=== PATIENT | male | born 1960 | race African-American/Black ===

== ENCOUNTER 2018-06-21 00:45 | Inpatient (IN) ==
[2018-06-21] MEDS ORDERED: ASPIRIN 325 MG TABLET PO STA (01:24)
[2018-06-21] MEDS ORDERED: methylPREDNISolone SOD SUC 125 MG/2 ML VIAL IV STA (01:24)
[2018-06-21] MEDS ORDERED: ONDANSETRON 4 MG/2 ML VIAL IV STA (01:24)
[2018-06-21] MEDS ORDERED: FUROSEMIDE 100 MG/10 ML VIAL IV STA (01:24)
[2018-06-21] MEDS ORDERED: NITROGLYCERIN 2% OINT 1 INCH/GM PACK TOP STA (01:24)
[2018-06-21] MEDS ORDERED: MORPHINE 4 MG/1 ML VIAL IV STA (01:24)
[2018-06-21] MEDS ORDERED: ALBUTEROL 2.5 MG/3 ML NEB RESP TX SCH (01:30)
[2018-06-21 02:31] LABS: Basophils # 0.1 10*3/uL (0.0-0.2); Basophils % 0.4 % (0.0-0.8); Hematocrit 41.6 VOL% (42.0-52.0); Hemoglobin 14.6 GM/DL (14.0-18.0); Immature Granulocytes % 0.8 %; Mean Corpuscular HGB Conc 35.1 GM/DL (32-36); Mean Corpuscular Hemoglobin 34 PG (27-34); Mean Corpuscular Volume 96.5 FL (87-102); Mean Platelet Volume 11.7 FL (9.6-12.0); Monocytes # 0.6 10*3/uL (0.11-0.8); Neutrophils # 10.5 10*3/uL (1.4-7.4); Neutrophils % 85.8 % (38.7-73.9); Platelet Count 126 T/CUMM (130-400); Red Blood Count 4.31 MC/CUMM (3.8-5.5); Red Cell Distribution Width 14.7 % (9.3-17.3); White Blood Count 12.2 T/CUMM (4-12)
[2018-06-21 02:39] LABS: INR 0.9; PT Patient Result 9.5 SECS
[2018-06-21 02:48] LABS: Alanine Aminotransferase 35 U/L (16-61); Alkaline Phosphatase 89 U/L (45-117); Amylase 112 U/L (25-115); Aspartate Amino Transferase 89 U/L (0-37); Blood Urea Nitrogen 23 MG/DL (7-18); Calcium 8.2 MG/DL (8.5-10.1); Glucose 102 MG/DL (74-106); Osmolality,Calculated 265.7 MOS/KG (273-304); Potassium 2.8 MMOL/L (3.5-5.1); Sodium 131 MMOL/L (136-145); Total Protein 7.5 G/DL (6.4-8.3)
[2018-06-21] MEDS ORDERED: POTASSIUM CHLORIDE RIDER 10 MEQ in PREMIX 1 EACH IV PRN (04:37)
[2018-06-21] MEDS ORDERED: MAGNESIUM SULF RIDER 4 GM in PREMIX 1 EACH IV PRN (04:37)
[2018-06-21] MEDS ORDERED: POTASSIUM CHLORIDE 20 MEQ TABLET PO STA (04:40)
[2018-06-21 05:23] LABS: Apearance,Urine Slightly Hazy (Clear); Bilirubin,Urine Negative (Negative); Blood, Urine Large mg/dL (Negative); Glucose,Urine (UA) Negative (Negative); Granular Casts,Urine 4 /LPF (0-1); Hyaline Casts,Urine 4 /LPF (0-3); Ketones,Urine Negative (Negative); Mucus,Urine Occasional /LPF (Occasional); Nitrite,Urine Negative (Negative); Protein,Urine >=500 MG/DL; RBC,Urine 2 /HPF (0-4); Squamous Epithelial Cell,Urine Occasional /HPF (0-10); Urine Color Yellow (Yellow); Urine Specific Gravity 1.012 (1.001-1.035); Urine Urobilinogen < 2.0 EU/DL (0.2-1.0); WBC,Urine 1 /HPF (0-6)
[2018-06-21] MEDS ORDERED: ACETAMINOPHEN 325 MG TABLET PO PRN (05:41)
[2018-06-21] MEDS ORDERED: ONDANSETRON 4 MG/2 ML VIAL IV PRN (05:41)
[2018-06-21 05:45] LABS: Barbiturates Screen,Urine Negative (Negative); Benzodiazepines Screen,Urine Negative (Negative); Cannabinoid Screen,Urine Negative (Negative); Opiate Screen,Urine Positive (Negative); Phencyclidine Screen,Urine Negative (Negative)
[2018-06-21] MEDS ORDERED: ALBUTEROL 1.25 MG/3 ML NEB RESP TX PRN (05:45)
[2018-06-21] MEDS ORDERED: LORazepam 2 MG/1 ML VIAL IV PRN ×2 (05:49)
[2018-06-21] MEDS ORDERED: cefTRIAXone 1,000 MG in SYRINGE 1 EACH IV SCH ×2 (06:00→09:30)
[2018-06-21] MEDS ORDERED: NICOTINE 21 MG/24 HR PATCH TRANSDERM PRN (06:21)
[2018-06-21 07:40] LABS: Risk Ratio 1.98; Thyroid Stimulating Hormone 2.57 uIU/ml (0.358-3.74); VLDL CHOLESTEROL 28.8 MG/DL
[2018-06-21] MEDS ORDERED: FUROSEMIDE 20 MG/2 ML VIAL IV SCH (08:00)
[2018-06-21] MEDS: ENOXAPARIN 40 MG/0.4 ML SYRINGE SUBCUT SCH (08:35)
[2018-06-21] MEDS: AZITHROMYCIN INJ 500 MG in SODIUM CHLORIDE 0.9% 250 ML IV SCH (08:36)
[2018-06-21] MEDS: ALBUTEROL/IPRATROPIUM 3 ML NEB RESP TX SCH ×3 (08:44→20:34)
[2018-06-21] MEDS ORDERED: POTASSIUM CHLORIDE 20 MEQ TABLET PO ONE (09:28)
[2018-06-21] MEDS ORDERED: cefTRIAXone 1,000 MG in SYRINGE 1 EACH IV ONE (10:00)
[2018-06-21] MEDS: LACTOBACILLUS ACIDOPHILUS/BULGARICUS CAPLET PO SCH (11:13)
[2018-06-21] MEDS: MULTIVITAMIN (BEROCCA) TABLET PO SCH (11:13)
[2018-06-21] MEDS: buPROPion SR 100 MG TABLET PO SCH (11:13)
[2018-06-21] MEDS: amLODIPine 5 MG TABLET PO SCH (11:14)
[2018-06-21] MEDS: CARVEDILOL 12.5 MG TABLET PO SCH ×2 (11:14→21:00)
[2018-06-21] MEDS: NICOTINE 21 MG/24 HR PATCH TRANSDERM SCH (11:14)
[2018-06-21] MEDS: THIAMINE 100 MG TABLET PO SCH ×2 (11:14→21:00)
[2018-06-21] MEDS: chlordiazePOXIDE 25 MG CAPSULE PO SCH ×3 (13:04→21:00)
[2018-06-21] MEDS: MAGNESIUM SULF RIDER 2 GM in PREMIX 1 EACH IV PRN ×2 (13:42→16:19)
[2018-06-21] MEDS: methylPREDNISolone SOD SUC 40 MG/1 ML VIAL IV SCH (16:18)
[2018-06-21] MEDS: FOLIC ACID 1 MG TABLET PO SCH (21:00)
[2018-06-22] MEDS: ALBUTEROL/IPRATROPIUM 3 ML NEB RESP TX SCH ×4 (01:17→19:56)
[2018-06-22] MEDS: methylPREDNISolone SOD SUC 40 MG/1 ML VIAL IV SCH ×2 (03:39→17:32)
[2018-06-22 05:15] LABS: Basophils % 0.1 % (0.0-0.8); Hematocrit 37.4 VOL% (42.0-52.0); Immature Granulocytes Absolute 0.09 #; Lymphocytes # 0.8 10*3/uL (1.4-4.0); Lymphocytes % 8.7 % (21.2-54.2); Mean Corpuscular HGB Conc 34.8 GM/DL (32-36); Mean Corpuscular Hemoglobin 34 PG (27-34); Mean Corpuscular Volume 97.4 FL (87-102); Mean Platelet Volume 11.9 FL (9.6-12.0); Monocytes # 0.5 10*3/uL (0.11-0.8); Neutrophils % 85.2 % (38.7-73.9); Platelet Count 133 T/CUMM (130-400); Red Blood Count 3.84 MC/CUMM (3.8-5.5); Red Cell Distribution Width 14.7 % (9.3-17.3); White Blood Count 9.3 T/CUMM (4-12)
[2018-06-22 05:30] LABS: Calcium 8.6 MG/DL (8.5-10.1); Osmolality,Calculated 279.4 MOS/KG (273-304); Potassium 3.4 MMOL/L (3.5-5.1)
[2018-06-22] MEDS: AZITHROMYCIN INJ 500 MG in SODIUM CHLORIDE 0.9% 250 ML IV SCH (05:43)
[2018-06-22] MEDS: ENOXAPARIN 40 MG/0.4 ML SYRINGE SUBCUT SCH (05:50)
[2018-06-22 06:06] LABS: Anisocytosis Slight; Band Neutrophils 2 % (0-10); Lymphocytes 8 % (20-55); Microcytosis Slight; Segmented Neutrophils 88 % (50-85); Total Cells Counted 100
[2018-06-22 06:08] LABS: Platelet Estimate Adequate
[2018-06-22] MEDS: chlordiazePOXIDE 25 MG CAPSULE PO SCH ×5 (07:36→20:48)
[2018-06-22] MEDS: NICOTINE 21 MG/24 HR PATCH TRANSDERM SCH ×2 (07:36→08:10)
[2018-06-22] MEDS: POTASSIUM CHLORIDE 20 MEQ TABLET PO SCH ×2 (07:37→08:09)
[2018-06-22] MEDS: THIAMINE 100 MG TABLET PO SCH ×3 (07:37→20:48)
[2018-06-22] MEDS: CARVEDILOL 12.5 MG TABLET PO SCH ×3 (07:38→20:48)
[2018-06-22] MEDS: MULTIVITAMIN (BEROCCA) TABLET PO SCH ×2 (07:38→08:09)
[2018-06-22] MEDS: buPROPion SR 100 MG TABLET PO SCH ×2 (07:38→08:10)
[2018-06-22] MEDS: LACTOBACILLUS ACIDOPHILUS/BULGARICUS CAPLET PO SCH ×2 (07:40→08:09)
[2018-06-22] MEDS: amLODIPine 5 MG TABLET PO SCH (08:11)
[2018-06-22] MEDS: cefTRIAXone 2,000 MG in SYRINGE 1 EACH IV SCH (09:42)
[2018-06-22] MEDS: VANCOMYCIN 50 MG/ML 60 ML/BOTTLE PO SCH ×2 (17:33→23:45)
[2018-06-22] MEDS: FOLIC ACID 1 MG TABLET PO SCH (20:48)
[2018-06-23] MEDS: ALBUTEROL/IPRATROPIUM 3 ML NEB RESP TX SCH ×4 (01:54→19:10)
[2018-06-23 05:13] LABS: Basophils % 0.2 % (0.0-0.8); Hematocrit 38.8 VOL% (42.0-52.0); Hemoglobin 13.3 GM/DL (14.0-18.0); Immature Granulocytes % 0.8 %; Immature Granulocytes Absolute 0.08 #; Lymphocytes # 1.5 10*3/uL (1.4-4.0); Lymphocytes % 14.4 % (21.2-54.2); Mean Corpuscular HGB Conc 34.3 GM/DL (32-36); Mean Corpuscular Hemoglobin 34 PG (27-34); Mean Corpuscular Volume 99.5 FL (87-102); Mean Platelet Volume 12.1 FL (9.6-12.0); Monocytes # 0.6 10*3/uL (0.11-0.8); Monocytes % 5.5 % (1.7-12.7); Neutrophils # 8.1 10*3/uL (1.4-7.4); Neutrophils % 79.1 % (38.7-73.9); Platelet Count 138 T/CUMM (130-400); Red Cell Distribution Width 14.9 % (9.3-17.3); White Blood Count 10.2 T/CUMM (4-12)
[2018-06-23 05:28] LABS: Calcium 8.9 MG/DL (8.5-10.1); Osmolality,Calculated 280.8 MOS/KG (273-304); Potassium 3.6 MMOL/L (3.5-5.1)
[2018-06-23 05:40] LABS: Anisocytosis 1+; Atypical Lymphocytes Few; Band Neutrophils 3 % (0-10); Lymphocytes 9 % (20-55); Platelet Estimate Adequate; Segmented Neutrophils 84 % (50-85); Total Cells Counted 100
[2018-06-23] MEDS: ENOXAPARIN 40 MG/0.4 ML SYRINGE SUBCUT SCH (05:40)
[2018-06-23] MEDS: methylPREDNISolone SOD SUC 40 MG/1 ML VIAL IV SCH ×2 (05:41→15:59)
[2018-06-23] MEDS: AZITHROMYCIN INJ 500 MG in SODIUM CHLORIDE 0.9% 250 ML IV SCH (05:41)
[2018-06-23] MEDS: VANCOMYCIN 50 MG/ML 60 ML/BOTTLE PO SCH ×4 (06:39→23:16)
[2018-06-23] MEDS: amLODIPine 5 MG TABLET PO SCH ×2 (07:53→08:39)
[2018-06-23] MEDS: LACTOBACILLUS ACIDOPHILUS/BULGARICUS CAPLET PO SCH ×2 (07:53→08:39)
[2018-06-23] MEDS: MULTIVITAMIN (BEROCCA) TABLET PO SCH ×2 (07:53→08:39)
[2018-06-23] MEDS: POTASSIUM CHLORIDE 20 MEQ TABLET PO SCH ×2 (07:53→08:39)
[2018-06-23] MEDS: chlordiazePOXIDE 25 MG CAPSULE PO SCH ×5 (07:53→20:19)
[2018-06-23] MEDS: buPROPion SR 100 MG TABLET PO SCH ×2 (07:53→08:40)
[2018-06-23] MEDS: CHOLECALCIFEROL 1,000 UNIT TABLET PO SCH ×2 (07:54→08:39)
[2018-06-23] MEDS: THIAMINE 100 MG TABLET PO SCH ×3 (07:54→20:20)
[2018-06-23] MEDS: CARVEDILOL 12.5 MG TABLET PO SCH ×3 (07:54→20:24)
[2018-06-23] MEDS: NICOTINE 21 MG/24 HR PATCH TRANSDERM SCH ×2 (07:54→08:39)
[2018-06-23] MEDS: cefTRIAXone 2,000 MG in SYRINGE 1 EACH IV SCH (09:42)
[2018-06-23] MEDS ORDERED: ERGOCALCIFEROL 50,000 UNIT CAPSULE PO SCH (13:30)
[2018-06-23] MEDS: LISINOPRIL 10 MG TABLET PO SCH (15:59)
[2018-06-23] MEDS: FOLIC ACID 1 MG TABLET PO SCH (20:20)
[2018-06-24] MEDS: ALBUTEROL/IPRATROPIUM 3 ML NEB RESP TX SCH ×4 (00:13→19:29)
[2018-06-24] MEDS: AZITHROMYCIN INJ 500 MG in SODIUM CHLORIDE 0.9% 250 ML IV SCH (05:13)
[2018-06-24] MEDS: VANCOMYCIN 50 MG/ML 60 ML/BOTTLE PO SCH ×4 (05:13→23:54)
[2018-06-24] MEDS: methylPREDNISolone SOD SUC 40 MG/1 ML VIAL IV SCH (05:14)
[2018-06-24] MEDS: ENOXAPARIN 40 MG/0.4 ML SYRINGE SUBCUT SCH (05:14)
[2018-06-24] MEDS: buPROPion SR 100 MG TABLET PO SCH (09:14)
[2018-06-24] MEDS: MULTIVITAMIN (BEROCCA) TABLET PO SCH (09:14)
[2018-06-24] MEDS: NICOTINE 21 MG/24 HR PATCH TRANSDERM SCH (09:14)
[2018-06-24] MEDS: THIAMINE 100 MG TABLET PO SCH ×2 (09:14→21:22)
[2018-06-24] MEDS: LISINOPRIL 10 MG TABLET PO SCH (09:14)
[2018-06-24] MEDS: LACTOBACILLUS ACIDOPHILUS/BULGARICUS CAPLET PO SCH (09:14)
[2018-06-24] MEDS: CARVEDILOL 12.5 MG TABLET PO SCH ×2 (09:14→21:22)
[2018-06-24] MEDS: chlordiazePOXIDE 25 MG CAPSULE PO SCH ×4 (09:14→21:22)
[2018-06-24] MEDS: CHOLECALCIFEROL 1,000 UNIT TABLET PO SCH (09:14)
[2018-06-24] MEDS: cefTRIAXone 2,000 MG in SYRINGE 1 EACH IV SCH (09:18)
[2018-06-24 10:38] LABS: Basophils % 0.4 % (0.0-0.8); Hematocrit 37.2 VOL% (42.0-52.0); Hemoglobin 12.6 GM/DL (14.0-18.0); Immature Granulocytes % 0.5 %; Immature Granulocytes Absolute 0.04 #; Lymphocytes # 1.3 10*3/uL (1.4-4.0); Lymphocytes % 15.1 % (21.2-54.2); Mean Corpuscular HGB Conc 33.9 GM/DL (32-36); Mean Corpuscular Hemoglobin 34 PG (27-34); Mean Corpuscular Volume 100.5 FL (87-102); Mean Platelet Volume 11.3 FL (9.6-12.0); Monocytes # 0.5 10*3/uL (0.11-0.8); Monocytes % 6.1 % (1.7-12.7); Neutrophils # 6.6 10*3/uL (1.4-7.4); Neutrophils % 77.9 % (38.7-73.9); Platelet Count 173 T/CUMM (130-400); Red Cell Distribution Width 15.1 % (9.3-17.3); White Blood Count 8.5 T/CUMM (4-12)
[2018-06-24 10:51] LABS: Calcium 8.8 MG/DL (8.5-10.1); Osmolality,Calculated 286.5 MOS/KG (273-304); Potassium 3.8 MMOL/L (3.5-5.1)
[2018-06-24 11:10] LABS: Hypochromasia 1+; Lymphocytes 15 % (20-55); Microcytosis Slight; Platelet Estimate Adequate; Segmented Neutrophils 84 % (50-85); Total Cells Counted 100
[2018-06-24] MEDS: FOLIC ACID 1 MG TABLET PO SCH (21:22)
[2018-06-25] MEDS: ALBUTEROL/IPRATROPIUM 3 ML NEB RESP TX SCH ×4 (05:05→19:29)
[2018-06-25] MEDS: AZITHROMYCIN INJ 500 MG in SODIUM CHLORIDE 0.9% 250 ML IV SCH (05:17)
[2018-06-25] MEDS: ENOXAPARIN 40 MG/0.4 ML SYRINGE SUBCUT SCH (05:18)
[2018-06-25] MEDS: VANCOMYCIN 50 MG/ML 60 ML/BOTTLE PO SCH ×3 (05:18→17:18)
[2018-06-25] MEDS: LISINOPRIL 10 MG TABLET PO SCH (09:29)
[2018-06-25] MEDS: NICOTINE 21 MG/24 HR PATCH TRANSDERM SCH (09:29)
[2018-06-25] MEDS: chlordiazePOXIDE 25 MG CAPSULE PO SCH ×4 (09:30→20:54)
[2018-06-25] MEDS: CHOLECALCIFEROL 1,000 UNIT TABLET PO SCH (09:31)
[2018-06-25] MEDS: buPROPion SR 100 MG TABLET PO SCH (09:32)
[2018-06-25] MEDS: LACTOBACILLUS ACIDOPHILUS/BULGARICUS CAPLET PO SCH (09:32)
[2018-06-25] MEDS: THIAMINE 100 MG TABLET PO SCH ×2 (09:32→20:54)
[2018-06-25] MEDS: methylPREDNISolone SOD SUC 40 MG/1 ML VIAL IV SCH (09:32)
[2018-06-25] MEDS: MULTIVITAMIN (BEROCCA) TABLET PO SCH (09:32)
[2018-06-25] MEDS: CARVEDILOL 12.5 MG TABLET PO SCH ×2 (09:32→20:54)
[2018-06-25] MEDS: cefTRIAXone 2,000 MG in SYRINGE 1 EACH IV SCH (09:33)
[2018-06-25] MEDS: FOLIC ACID 1 MG TABLET PO SCH (20:54)
[2018-06-26] MEDS: VANCOMYCIN 50 MG/ML 60 ML/BOTTLE PO SCH ×4 (00:14→17:09)
[2018-06-26] MEDS: ALBUTEROL/IPRATROPIUM 3 ML NEB RESP TX SCH ×4 (00:44→19:17)
[2018-06-26] MEDS ORDERED: hydrALAZINE 20 MG/1 ML VIAL IV ONE (02:49)
[2018-06-26] MEDS: AZITHROMYCIN INJ 500 MG in SODIUM CHLORIDE 0.9% 250 ML IV SCH (05:42)
[2018-06-26] MEDS: ENOXAPARIN 40 MG/0.4 ML SYRINGE SUBCUT SCH (05:43)
[2018-06-26 08:00] LABS: Albumin (SPE) Rel % 45.7 %; Alpha 1 (SPE) 0.2 G/DL (0.1-0.4); Alpha 1 (SPE) Rel % 3.7 %; Alpha 2 (SPE) 1.1 G/DL (0.4-1.0); Alpha 2 (SPE) Rel % 16.6 %; Beta (SPE) 0.9 G/DL (0.5-1.1); Beta (SPE) Rel % 13.3 %; Gamma (SPE) 1.4 G/DL (0.7-1.7); Gamma (SPE) Rel % 20.7 %; Total Protein (Chem) 6.6 G/DL (6.4-8.3)
[2018-06-26] MEDS: NICOTINE 21 MG/24 HR PATCH TRANSDERM SCH (09:13)
[2018-06-26] MEDS: MULTIVITAMIN (BEROCCA) TABLET PO SCH (09:14)
[2018-06-26] MEDS: chlordiazePOXIDE 25 MG CAPSULE PO SCH ×4 (09:14→21:11)
[2018-06-26] MEDS: CARVEDILOL 12.5 MG TABLET PO SCH ×2 (09:14→21:11)
[2018-06-26] MEDS: CHOLECALCIFEROL 1,000 UNIT TABLET PO SCH (09:14)
[2018-06-26] MEDS: THIAMINE 100 MG TABLET PO SCH ×2 (09:14→21:11)
[2018-06-26] MEDS: LISINOPRIL 20 MG TABLET PO SCH ×2 (09:14→21:11)
[2018-06-26] MEDS: methylPREDNISolone SOD SUC 40 MG/1 ML VIAL IV SCH (09:14)
[2018-06-26] MEDS: LACTOBACILLUS ACIDOPHILUS/BULGARICUS CAPLET PO SCH (09:14)
[2018-06-26] MEDS: buPROPion SR 100 MG TABLET PO SCH (09:14)
[2018-06-26] MEDS: cefTRIAXone 2,000 MG in SYRINGE 1 EACH IV SCH (09:20)
[2018-06-26 10:06] LABS: Immuno Free Light Chain Kappa 3.39 MG/DL (0.33-1.94); Immuno Free Light Chain Lambda 3.24 MG/DL (0.57-2.63); Immuno Free Light Chain Ratio 1.05 MG/DL (0.26-1.65)
[2018-06-26 11:09] LABS: HIV Antigen/Antibody Result Nonreactive (Nonreactive)
[2018-06-26] MEDS: FOLIC ACID 1 MG TABLET PO SCH (21:11)
[2018-06-27] MEDS: ALBUTEROL/IPRATROPIUM 3 ML NEB RESP TX SCH ×2 (00:05→07:15)
[2018-06-27] MEDS: VANCOMYCIN 50 MG/ML 60 ML/BOTTLE PO SCH ×4 (00:30→11:12)
[2018-06-27 05:36] LABS: Total Protein 24 Hr Ur Result 408 MG/24HR (0-149.1); Total Volume,Urine 800 ML (400-2000)
[2018-06-27] MEDS: AZITHROMYCIN INJ 500 MG in SODIUM CHLORIDE 0.9% 250 ML IV SCH (05:58)
[2018-06-27] MEDS: ENOXAPARIN 40 MG/0.4 ML SYRINGE SUBCUT SCH (06:00)
[2018-06-27 07:37] VITALS: BP 147/89
[2018-06-27 08:26] LABS: Basophils % 0.2 % (0.0-0.8); Eosinophils # 0.1 10*3/uL (0.0-0.87); Eosinophils % 1.2 % (0.00-10.9); Hematocrit 36.9 VOL% (42.0-52.0); Hemoglobin 12.8 GM/DL (14.0-18.0); Immature Granulocytes % 1.2 %; Immature Granulocytes Absolute 0.08 #; Lymphocytes # 1.7 10*3/uL (1.4-4.0); Lymphocytes % 25.8 % (21.2-54.2); Mean Corpuscular HGB Conc 34.7 GM/DL (32-36); Mean Corpuscular Hemoglobin 34 PG (27-34); Mean Corpuscular Volume 98.4 FL (87-102); Mean Platelet Volume 10.3 FL (9.6-12.0); Monocytes # 0.8 10*3/uL (0.11-0.8); Monocytes % 12.3 % (1.7-12.7); Neutrophils # 3.9 10*3/uL (1.4-7.4); Neutrophils % 59.3 % (38.7-73.9); Platelet Count 273 T/CUMM (130-400); Red Blood Count 3.75 MC/CUMM (3.8-5.5); Red Cell Distribution Width 15.3 % (9.3-17.3); White Blood Count 6.5 T/CUMM (4-12)
[2018-06-27 08:46] LABS: Eosinophils 1 % (0-10); Hypochromasia 1+; Lymphocytes 27 % (20-55); Platelet Estimate Adequate; Segmented Neutrophils 56 % (50-85); Total Cells Counted 100
[2018-06-27 08:47] LABS: Atypical Lymphocytes Few; Microcytosis Slight
[2018-06-27 08:48] LABS: 24 Hr Protein (Bench) 408 MG/24HR (0-149.1)
[2018-06-27 08:48] LABS: Calcium 8.2 MG/DL (8.5-10.1); Osmolality,Calculated 286.1 MOS/KG (273-304); Potassium 3.1 MMOL/L (3.5-5.1)
[2018-06-27] MEDS: cefTRIAXone 2,000 MG in SYRINGE 1 EACH IV SCH ×2 (08:54→09:48)
[2018-06-27] MEDS: NICOTINE 21 MG/24 HR PATCH TRANSDERM SCH (08:54)
[2018-06-27] MEDS: methylPREDNISolone SOD SUC 40 MG/1 ML VIAL IV SCH (08:54)
[2018-06-27] MEDS: buPROPion SR 100 MG TABLET PO SCH (08:55)
[2018-06-27] MEDS: LISINOPRIL 20 MG TABLET PO SCH (08:55)
[2018-06-27] MEDS: LACTOBACILLUS ACIDOPHILUS/BULGARICUS CAPLET PO SCH (08:55)
[2018-06-27] MEDS: CARVEDILOL 12.5 MG TABLET PO SCH (08:56)
[2018-06-27] MEDS: THIAMINE 100 MG TABLET PO SCH (08:56)
[2018-06-27] MEDS: CHOLECALCIFEROL 1,000 UNIT TABLET PO SCH (08:56)
[2018-06-27] MEDS: MULTIVITAMIN (BEROCCA) TABLET PO SCH (08:56)
[2018-06-27] MEDS: chlordiazePOXIDE 25 MG CAPSULE PO SCH (08:56)
[2018-06-27] MEDS ORDERED: POTASSIUM CHLORIDE 20 MEQ TABLET PO ONE (09:26)
== END 2018-06-27 12:15 | disposition home or self-care (01) | DRG 371 ==
LOC: N.ED 00:45 → N.EDINP 05:28 → SUATTDRO 05:28 → N.5E 05:47
PROVIDERS: ADMIT Hospitalist; ATTEND Hospitalist

== ENCOUNTER 2022-03-26 15:27 | Inpatient (IN) ==
[2022-03-26] MEDS ORDERED: ONDANSETRON 4 MG/2 ML VIAL IV STA (15:50)
[2022-03-26] MEDS ORDERED: SODIUM CHLORIDE 0.9% 1,000 ML IV STA (15:50)
[2022-03-26 15:56] LABS: Basophils % 0.2 % (0.0-0.8); Hematocrit 33.3 VOL% (42.0-52.0); Hemoglobin 12.1 GM/DL (14.0-18.0); Immature Granulocytes Absolute 0.19 #; Lymphocytes # 0.5 10*3/uL (1.4-4.0); Lymphocytes % 7.2 % (21.2-54.2); Mean Corpuscular HGB Conc 36.3 GM/DL (32-36); Mean Corpuscular Volume 101.5 FL (87-102); Mean Platelet Volume 10.9 FL (9.6-12.0); Monocytes # 0.8 10*3/uL (0.11-0.8); Monocytes % 12.3 % (1.7-12.7); NRBC # 0.04 10*3/uL; Neutrophils % 77.3 % (38.7-73.9); Platelet Count 152 T/CUMM (130-400); Red Blood Count 3.28 MC/CUMM (3.8-5.5); Red Cell Distribution Width 15.6 % (9.3-17.3); White Blood Count 6.3 T/CUMM (4-12)
[2022-03-26 16:12] LABS: Alanine Aminotransferase 60 U/L (16-61); Albumin 2.5 G/DL (3.4-5.0); Alkaline Phosphatase 234 U/L (45-117); Amylase 103 U/L (25-115); Aspartate Amino Transferase 337 U/L (0-37); Blood Urea Nitrogen 32 MG/DL (7-18); Calcium 8.5 MG/DL (8.5-10.1); Carbon Dioxide 35 MMOL/L (21-32); Chloride 84 MMOL/L (98-107); Glucose 176 MG/DL (74-106); Osmolality,Calculated 278.2 MOS/KG (273-304); Sodium 134 MMOL/L (136-145); Total Protein 7.3 G/DL (6.4-8.2)
[2022-03-26] MEDS ORDERED: POTASSIUM CHLORIDE RIDER 20 MEQ/100 ML PREMIX IV STA ×2 (16:14→16:18)
[2022-03-26] MEDS ORDERED: MAGNESIUM SULF RIDER 4 GM/100 ML PREMIX IV ONE (17:00)
[2022-03-26 17:19] LABS: Band Neutrophils 2 % (0-10); Lymphocytes 3 % (20-55); Total Cells Counted 100
[2022-03-26 17:22] LABS: Anisocytosis 1+
[2022-03-26 17:28] LABS: Macrocytosis Slight; Platelet Estimate Adequate
[2022-03-26 17:29] LABS: Hypochromia Slight
[2022-03-26] MEDS ORDERED: SODIUM CHLORIDE 0.9% 500 ML IV ONE (17:42)
[2022-03-26] MEDS ORDERED: MAGNESIUM SULF RIDER 4 GM/100 ML PREMIX IV PRN (17:45)
[2022-03-26] MEDS ORDERED: LORazepam 2 MG/1 ML VIAL IV PRN (17:49)
[2022-03-26] MEDS ORDERED: chlordiazePOXIDE 25 MG CAPSULE PO PRN (17:49)
[2022-03-26 18:05] LABS: % Iron Saturation 30.7 % (18-50)
[2022-03-26 18:11] LABS: Folate 3.5 NG/ML (5.38-24.0)
[2022-03-26] MEDS: SODIUM CHLOR 0.9% KCL 20 MEQ 20 MEQ/1,000 ML BAG IV SCH (19:00)
[2022-03-26] MEDS: NICOTINE 21 MG/24 HR PATCH TRANSDERM SCH (19:00)
[2022-03-26] MEDS: MULTIVITAMIN INJ 10 ML in SODIUM CHLORIDE 0.9% 1,000 ML IV SCH (19:00)
[2022-03-26] MEDS: PIPERACILLIN/TAZOBACTAM 3,375 MG in SODIUM CHLORIDE 0.9% 100 ML IV SCH (19:00)
[2022-03-26 19:05] LABS: Hepatitis B Core IgM Quant < 0.05 Index; Hepatitis B Surface Ag Quant < 0.10 Index; Hepatitis B Surface Ag Result Non-Reactive (NonReactive); Hepatitis C Virus Ab Quant 0.03 Index; Hepatitis C Virus Ab Result Non-Reactive (NonReactive)
[2022-03-26 20:57] LABS: Calcium 7.6 MG/DL (8.5-10.1); Osmolality,Calculated 272.7 MOS/KG (273-304)
[2022-03-26] MEDS: POTASSIUM CHLORIDE RIDER 10 MEQ/100 ML PREMIX IV PRN ×2 (21:50→22:50)
[2022-03-26] MEDS: PANTOPRAZOLE 40 MG VIAL IV SCH (21:55)
[2022-03-26] MEDS: THIAMINE 200 MG/2 ML VIAL IV SCH (21:56)
[2022-03-26] MEDS ORDERED: AZITHROMYCIN INJ 500 MG in SODIUM CHLORIDE 0.9% 250 ML IV SCH (22:00)
[2022-03-26] MEDS ORDERED: cloNIDine 0.2 MG/24 HR PATCH TRANSDERM SCH (22:30)
[2022-03-26] MEDS: COLESTIPOL 1 GM TABLET PO SCH (23:24)
[2022-03-27 01:17] LABS: Hematocrit 24.8 VOL% (42.0-52.0)
[2022-03-27 01:19] LABS: Hemoglobin 8.8 GM/DL (14.0-18.0)
[2022-03-27] MEDS: POTASSIUM CHLORIDE RIDER 10 MEQ/100 ML PREMIX IV PRN ×6 (01:20→16:30)
[2022-03-27] MEDS: SODIUM CHLOR 0.9% KCL 20 MEQ 20 MEQ/1,000 ML BAG IV SCH ×3 (01:38→17:23)
[2022-03-27] MEDS: PIPERACILLIN/TAZOBACTAM 3,375 MG in SODIUM CHLORIDE 0.9% 100 ML IV SCH (02:48)
[2022-03-27] MEDS: hydrALAZINE 20 MG/1 ML VIAL IV PRN (04:30)
[2022-03-27 06:07] LABS: Basophils % 0.3 % (0.0-0.8); Hematocrit 27.7 VOL% (42.0-52.0); Hemoglobin 9.8 GM/DL (14.0-18.0); Immature Granulocytes % 2.5 %; Immature Granulocytes Absolute 0.25 #; Lymphocytes # 0.8 10*3/uL (1.4-4.0); Lymphocytes % 8.4 % (21.2-54.2); Mean Corpuscular HGB Conc 35.4 GM/DL (32-36); Mean Corpuscular Volume 105.3 FL (87-102); NRBC # 0.05 10*3/uL; Neutrophils % 78.8 % (38.7-73.9); Platelet Count 146 T/CUMM (130-400); Red Blood Count 2.63 MC/CUMM (3.8-5.5); Red Cell Distribution Width 15.9 % (9.3-17.3); White Blood Count 9.9 T/CUMM (4-12)
[2022-03-27 06:36] LABS: Albumin 2.1 G/DL (3.4-5.0); Bilirubin,Total 0.8 MG/DL (0.20-1.00); Calcium 7.7 MG/DL (8.5-10.1); Osmolality,Calculated 275.1 MOS/KG (273-304); Potassium 2.7 MMOL/L (3.5-5.1); Thyroid Stimulating Hormone 0.847 uIU/ml (0.358-3.74); Total Protein 6.1 G/DL (6.4-8.2)
[2022-03-27 08:12] LABS: Band Neutrophils 4 % (0-10); Lymphocytes 8 % (20-55); Platelet Estimate Adequate; Total Cells Counted 100
[2022-03-27 09:05] LABS: Albumin 2.2 G/DL (3.4-5.0); Bilirubin,Total 0.9 MG/DL (0.20-1.00); Calcium 7.9 MG/DL (8.5-10.1); Osmolality,Calculated 277.8 MOS/KG (273-304); Potassium 2.9 MMOL/L (3.5-5.1); Total Protein 6.3 G/DL (6.4-8.2)
[2022-03-27] MEDS: PANTOPRAZOLE 40 MG VIAL IV SCH ×2 (09:59→21:34)
[2022-03-27] MEDS: NICOTINE 21 MG/24 HR PATCH TRANSDERM SCH (10:00)
[2022-03-27] MEDS: COLESTIPOL 1 GM TABLET PO SCH ×2 (10:01→21:34)
[2022-03-27] MEDS: chlordiazePOXIDE 25 MG CAPSULE PO SCH ×3 (10:01→21:34)
[2022-03-27] MEDS: THIAMINE 200 MG/2 ML VIAL IV SCH ×2 (10:01→21:35)
[2022-03-27] MEDS: FOLIC ACID INJ 1 MG in SYRINGE 1 EACH IV SCH (10:05)
[2022-03-27] MEDS: VANCOMYCIN 125 MG CAPSULE PO SCH ×3 (12:34→21:34)
[2022-03-27] MEDS: METOPROLOL TARTRATE 25 MG TABLET PO SCH ×2 (15:14→21:34)
[2022-03-27] MEDS: MULTIVITAMIN INJ 10 ML in SODIUM CHLORIDE 0.9% 1,000 ML IV SCH (17:23)
[2022-03-27 17:29] LABS: Squamous Epithelial Cell,Urine Occasional /HPF (0-10)
[2022-03-27 17:31] LABS: Urine Appearance Clear (Clear); Urine Color Yellow (Yellow)
[2022-03-27 17:32] LABS: Bilirubin,Urine Negative (Negative); Blood, Urine Small mg/dL (Negative); Glucose,Urine (UA) Negative (Negative); Ketones,Urine Negative (Negative); Nitrite,Urine Negative (Negative); Protein,Urine >=300 mg/dL (Negative); Urine Urobilinogen 0.2 eU/dL (<2.0)
[2022-03-27 18:41] LABS: Barbiturates Screen,Urine Negative (Negative); Benzodiazepines Screen,Urine Negative (Negative); Cannabinoid Screen,Urine Negative (Negative); Opiate Screen,Urine Negative (Negative); Phencyclidine Screen,Urine Negative (Negative)
[2022-03-28] MEDS: SODIUM CHLOR 0.9% KCL 20 MEQ 20 MEQ/1,000 ML BAG IV SCH ×3 (03:36→21:11)
[2022-03-28] MEDS: VANCOMYCIN 125 MG CAPSULE PO SCH ×4 (03:36→21:12)
[2022-03-28 05:04] LABS: Basophils % 0.2 % (0.0-0.8); Eosinophils % 0.1 % (0.00-10.9); Hematocrit 24.4 VOL% (42.0-52.0); Hemoglobin 8.3 GM/DL (14.0-18.0); Immature Granulocytes % 5.1 %; Immature Granulocytes Absolute 0.48 #; Lymphocytes # 1.2 10*3/uL (1.4-4.0); Mean Corpuscular Volume 107.5 FL (87-102); Mean Platelet Volume 12.1 FL (9.6-12.0); Monocytes # 0.5 10*3/uL (0.11-0.8); Monocytes % 5.5 % (1.7-12.7); NRBC # 0.02 10*3/uL; Neutrophils % 76.1 % (38.7-73.9); Platelet Count 161 T/CUMM (130-400); Red Blood Count 2.27 MC/CUMM (3.8-5.5); Red Cell Distribution Width 16.4 % (9.3-17.3); White Blood Count 9.4 T/CUMM (4-12)
[2022-03-28 05:27] LABS: Albumin 1.8 G/DL (3.4-5.0); Bilirubin,Total 0.6 MG/DL (0.20-1.00); Calcium 7.8 MG/DL (8.5-10.1); Hypochromia Slight; Lymphocytes 8 % (20-55); Microcytosis Slight; Osmolality,Calculated 281.5 MOS/KG (273-304); Platelet Estimate Adequate; Total Cells Counted 100; Total Protein 5.6 G/DL (6.4-8.2)
[2022-03-28 05:31] LABS: Potassium 2.3 MMOL/L (3.5-5.1)
[2022-03-28 05:35] LABS: Calcium 7.6 MG/DL (8.5-10.1); Osmolality,Calculated 281.5 MOS/KG (273-304); Potassium 2.3 MMOL/L (3.5-5.1)
[2022-03-28] MEDS: POTASSIUM CHLORIDE RIDER 10 MEQ/100 ML PREMIX IV PRN ×4 (05:40→13:29)
[2022-03-28] MEDS: MAGNESIUM SULF RIDER 2 GM/50 ML PREMIX IV PRN (06:05)
[2022-03-28] MEDS ORDERED: MAGNESIUM SULF RIDER 4 GM/100 ML PREMIX IV ONE (07:31)
[2022-03-28] MEDS ORDERED: POTASSIUM CHLORIDE 20 MEQ TABLET PO ONE ×4 (07:31→15:00)
[2022-03-28] MEDS: PANTOPRAZOLE 40 MG VIAL IV SCH ×2 (09:29→21:11)
[2022-03-28] MEDS: COLESTIPOL 1 GM TABLET PO SCH ×2 (10:16→21:12)
[2022-03-28] MEDS: chlordiazePOXIDE 25 MG CAPSULE PO SCH ×3 (10:16→21:12)
[2022-03-28] MEDS: METOPROLOL TARTRATE 25 MG TABLET PO SCH ×2 (10:16→21:12)
[2022-03-28] MEDS: NICOTINE 21 MG/24 HR PATCH TRANSDERM SCH (10:21)
[2022-03-28] MEDS: FOLIC ACID INJ 1 MG in SYRINGE 1 EACH IV SCH (10:28)
[2022-03-28] MEDS: THIAMINE 200 MG/2 ML VIAL IV SCH ×2 (10:28→21:12)
[2022-03-28 12:44] LABS: Calcium 7.8 MG/DL (8.5-10.1); Osmolality,Calculated 286.4 MOS/KG (273-304); Potassium 3.3 MMOL/L (3.5-5.1)
[2022-03-28] MEDS: MULTIVITAMIN INJ 10 ML in SODIUM CHLORIDE 0.9% 1,000 ML IV SCH (17:19)
[2022-03-29] MEDS: VANCOMYCIN 125 MG CAPSULE PO SCH ×4 (03:47→21:04)
[2022-03-29] MEDS: SODIUM CHLOR 0.9% KCL 20 MEQ 20 MEQ/1,000 ML BAG IV SCH ×3 (03:48→21:20)
[2022-03-29 05:14] LABS: Basophils % 0.4 % (0.0-0.8); Eosinophils % 0.1 % (0.00-10.9); Hemoglobin 9.1 GM/DL (14.0-18.0); Immature Granulocytes % 5.4 %; Immature Granulocytes Absolute 0.56 #; Lymphocytes # 1.1 10*3/uL (1.4-4.0); Lymphocytes % 11.1 % (21.2-54.2); Mean Corpuscular HGB Conc 33.7 GM/DL (32-36); Mean Corpuscular Volume 109.3 FL (87-102); Mean Platelet Volume 12.3 FL (9.6-12.0); Monocytes # 0.6 10*3/uL (0.11-0.8); Monocytes % 5.3 % (1.7-12.7); NRBC # 0.02 10*3/uL; Neutrophils % 77.7 % (38.7-73.9); Platelet Count 212 T/CUMM (130-400); Red Blood Count 2.47 MC/CUMM (3.8-5.5); Red Cell Distribution Width 16.7 % (9.3-17.3); White Blood Count 10.3 T/CUMM (4-12)
[2022-03-29 05:35] LABS: Lymphocytes 8 % (20-55); Platelet Estimate Adequate; Total Cells Counted 100
[2022-03-29 05:47] LABS: Albumin 1.8 G/DL (3.4-5.0); Bilirubin,Total 0.6 MG/DL (0.20-1.00); Calcium 7.7 MG/DL (8.5-10.1); Osmolality,Calculated 290.8 MOS/KG (273-304); Potassium 3.2 MMOL/L (3.5-5.1); Total Protein 5.8 G/DL (6.4-8.2)
[2022-03-29 05:50] LABS: Calcium 7.9 MG/DL (8.5-10.1); Osmolality,Calculated 286.3 MOS/KG (273-304); Potassium 3.1 MMOL/L (3.5-5.1)
[2022-03-29] MEDS: hydrALAZINE 20 MG/1 ML VIAL IV PRN (06:05)
[2022-03-29] MEDS ORDERED: METOPROLOL TARTRATE 5 MG/5 ML VIAL IV ONE (08:13)
[2022-03-29] MEDS: LACTATED RINGERS 1,000 ML IV SCH (08:38)
[2022-03-29] MEDS ORDERED: METOPROLOL TARTRATE 25 MG TABLET PO SCH (09:00)
[2022-03-29] MEDS ORDERED: ALBUTEROL/IPRATROPIUM 3 ML NEB RESP TX ONE (09:00)
[2022-03-29] MEDS ORDERED: LIDOCAINE 2% 5 ML VIAL ONE (10:11)
[2022-03-29] MEDS ORDERED: propofoL 200 MG/20 ML VIAL IV ONE (10:11)
[2022-03-29] MEDS: chlordiazePOXIDE 25 MG CAPSULE PO SCH ×3 (12:23→21:04)
[2022-03-29] MEDS: NICOTINE 21 MG/24 HR PATCH TRANSDERM SCH (12:23)
[2022-03-29] MEDS: cloNIDine 0.1 MG/24 HR PATCH TRANSDERM SCH (12:26)
[2022-03-29] MEDS: amLODIPine 5 MG TABLET PO SCH (12:26)
[2022-03-29] MEDS: COLESTIPOL 1 GM TABLET PO SCH ×2 (12:26→21:04)
[2022-03-29] MEDS: PANTOPRAZOLE 40 MG VIAL IV SCH ×2 (12:59→21:05)
[2022-03-29] MEDS: THIAMINE 200 MG/2 ML VIAL IV SCH ×2 (12:59→21:04)
[2022-03-29] MEDS: FOLIC ACID INJ 1 MG in SYRINGE 1 EACH IV SCH (12:59)
[2022-03-29] MEDS ORDERED: POTASSIUM CHLORIDE 20 MEQ TABLET PO ONE (14:55)
[2022-03-29] MEDS: MULTIVITAMIN INJ 10 ML in SODIUM CHLORIDE 0.9% 1,000 ML IV SCH (17:54)
[2022-03-29] MEDS: METOPROLOL TARTRATE 50 MG TABLET PO SCH (21:04)
[2022-03-30] MEDS: hydrALAZINE 20 MG/1 ML VIAL IV PRN ×4 (02:50→21:41)
[2022-03-30] MEDS: VANCOMYCIN 125 MG CAPSULE PO SCH ×4 (04:14→21:41)
[2022-03-30 04:47] LABS: Basophils # 0.1 10*3/uL (0.0-0.2); Basophils % 0.5 % (0.0-0.8); Eosinophils % 0.1 % (0.00-10.9); Hematocrit 28.7 VOL% (42.0-52.0); Hemoglobin 9.8 GM/DL (14.0-18.0); Immature Granulocytes % 4.9 %; Immature Granulocytes Absolute 0.56 #; Lymphocytes # 1.1 10*3/uL (1.4-4.0); Lymphocytes % 9.3 % (21.2-54.2); Mean Corpuscular HGB Conc 34.1 GM/DL (32-36); Mean Corpuscular Volume 109.5 FL (87-102); Mean Platelet Volume 11.8 FL (9.6-12.0); Monocytes # 0.5 10*3/uL (0.11-0.8); Monocytes % 4.5 % (1.7-12.7); NRBC # 0.03 10*3/uL; Neutrophils % 80.7 % (38.7-73.9); Platelet Count 237 T/CUMM (130-400); Red Blood Count 2.62 MC/CUMM (3.8-5.5); Red Cell Distribution Width 16.8 % (9.3-17.3); White Blood Count 11.4 T/CUMM (4-12)
[2022-03-30 05:04] LABS: Calcium 8.2 MG/DL (8.5-10.1); Osmolality,Calculated 296.4 MOS/KG (273-304); Potassium 3.3 MMOL/L (3.5-5.1)
[2022-03-30 05:09] LABS: Albumin 1.9 G/DL (3.4-5.0); Bilirubin,Total 0.7 MG/DL (0.20-1.00); Calcium 8.4 MG/DL (8.5-10.1); Osmolality,Calculated 293.6 MOS/KG (273-304); Potassium 3.3 MMOL/L (3.5-5.1); Total Protein 6.2 G/DL (6.4-8.2)
[2022-03-30 05:33] LABS: Hypochromia Slight; Lymphocytes 10 % (20-55); Microcytosis Slight; Platelet Estimate Adequate; Total Cells Counted 100
[2022-03-30] MEDS ORDERED: POTASSIUM CHLORIDE 20 MEQ TABLET PO ONE ×2 (07:37→11:00)
[2022-03-30] MEDS ORDERED: MAGNESIUM SULF RIDER 4 GM/100 ML PREMIX IV ONE (08:11)
[2022-03-30] MEDS: FOLIC ACID INJ 1 MG in SYRINGE 1 EACH IV SCH (10:34)
[2022-03-30] MEDS: THIAMINE 200 MG/2 ML VIAL IV SCH ×2 (10:35→21:38)
[2022-03-30] MEDS ORDERED: amLODIPine 5 MG TABLET PO ONE (10:50)
[2022-03-30] MEDS: NICOTINE 21 MG/24 HR PATCH TRANSDERM SCH (11:37)
[2022-03-30] MEDS: PANTOPRAZOLE 40 MG TABLET PO SCH (11:37)
[2022-03-30] MEDS: METOPROLOL TARTRATE 50 MG TABLET PO SCH ×2 (11:37→20:00)
[2022-03-30] MEDS: COLESTIPOL 1 GM TABLET PO SCH ×2 (11:37→21:38)
[2022-03-30] MEDS: chlordiazePOXIDE 25 MG CAPSULE PO SCH ×2 (11:37→14:41)
[2022-03-30] MEDS: amLODIPine 5 MG TABLET PO SCH (12:03)
[2022-03-30] MEDS: SODIUM CHLOR 0.9% KCL 20 MEQ 20 MEQ/1,000 ML BAG IV SCH (12:03)
[2022-03-30] MEDS: LACTATED RINGERS 1,000 ML IV SCH ×2 (13:25→16:42)
[2022-03-30] MEDS ORDERED: FUROSEMIDE 20 MG/2 ML VIAL IV ONE (15:32)
[2022-03-30] MEDS ORDERED: chlordiazePOXIDE 25 MG CAPSULE PO PRN (15:39)
[2022-03-30] MEDS: LEVOFLOXACIN INJ 500 MG/100 ML PREMIX IV SCH (16:42)
[2022-03-30] MEDS: MULTIVITAMIN INJ 10 ML in SODIUM CHLORIDE 0.9% 1,000 ML IV SCH (17:05)
[2022-03-30] MEDS: ALBUTEROL/IPRATROPIUM 3 ML NEB RESP TX SCH (19:05)
[2022-03-31] MEDS: ALBUTEROL/IPRATROPIUM 3 ML NEB RESP TX SCH ×4 (00:23→19:15)
[2022-03-31] MEDS: VANCOMYCIN 125 MG CAPSULE PO SCH ×4 (04:12→21:00)
[2022-03-31 06:07] LABS: Basophils % 0.3 % (0.0-0.8); Eosinophils % 0.2 % (0.00-10.9); Hematocrit 27.6 VOL% (42.0-52.0); Hemoglobin 9.3 GM/DL (14.0-18.0); Immature Granulocytes % 6.9 %; Immature Granulocytes Absolute 0.43 #; Lymphocytes # 0.7 10*3/uL (1.4-4.0); Lymphocytes % 10.7 % (21.2-54.2); Mean Corpuscular HGB Conc 33.7 GM/DL (32-36); Mean Corpuscular Volume 107.8 FL (87-102); Mean Platelet Volume 11.4 FL (9.6-12.0); Monocytes # 0.5 10*3/uL (0.11-0.8); Monocytes % 7.4 % (1.7-12.7); NRBC # 0.02 10*3/uL; Neutrophils % 74.5 % (38.7-73.9); Platelet Count 236 T/CUMM (130-400); Red Blood Count 2.56 MC/CUMM (3.8-5.5); Red Cell Distribution Width 16.7 % (9.3-17.3); White Blood Count 6.3 T/CUMM (4-12)
[2022-03-31 06:35] LABS: Anisocytosis 1+; Band Neutrophils 4 % (0-10); Calcium 8.5 MG/DL (8.5-10.1); Eosinophils 1 % (0-10); Lymphocytes 14 % (20-55); Macrocytosis 1+; Metamyelocytes 1 %; Osmolality,Calculated 294.3 MOS/KG (273-304); Platelet Estimate Normal; Potassium 3.2 MMOL/L (3.5-5.1); Total Cells Counted 100
[2022-03-31 06:55] LABS: Albumin 1.8 G/DL (3.4-5.0); Bilirubin,Total 0.7 MG/DL (0.20-1.00); Calcium 8.3 MG/DL (8.5-10.1); Osmolality,Calculated 292.4 MOS/KG (273-304); Potassium 3.3 MMOL/L (3.5-5.1); Total Protein 5.9 G/DL (6.4-8.2)
[2022-03-31 08:10] LABS: Calcium 8.6 MG/DL (8.5-10.1); Osmolality,Calculated 290.6 MOS/KG (273-304); Potassium 3.1 MMOL/L (3.5-5.1)
[2022-03-31] MEDS ORDERED: POTASSIUM CHLORIDE 20 MEQ TABLET PO ONE ×4 (08:20→18:00)
[2022-03-31] MEDS ORDERED: POTASSIUM CHLORIDE 20 MEQ TABLET PO SCH (09:00)
[2022-03-31] MEDS ORDERED: MAGNESIUM SULF RIDER 4 GM/100 ML PREMIX IV ONE (09:06)
[2022-03-31] MEDS: THIAMINE 200 MG/2 ML VIAL IV SCH ×2 (09:53→20:50)
[2022-03-31] MEDS: FOLIC ACID INJ 1 MG in SYRINGE 1 EACH IV SCH (09:53)
[2022-03-31] MEDS: COLESTIPOL 1 GM TABLET PO SCH ×2 (10:18→21:00)
[2022-03-31] MEDS: amLODIPine 10 MG TABLET PO SCH (10:19)
[2022-03-31] MEDS: PANTOPRAZOLE 40 MG TABLET PO SCH (10:19)
[2022-03-31] MEDS: NICOTINE 21 MG/24 HR PATCH TRANSDERM SCH (10:29)
[2022-03-31] MEDS: METOPROLOL TARTRATE 50 MG TABLET PO SCH ×2 (10:29→20:49)
[2022-03-31] MEDS ORDERED: DOXAZOSIN 1 MG TABLET PO ONE (10:40)
[2022-03-31] MEDS: LACTATED RINGERS 1,000 ML IV SCH (12:11)
[2022-03-31 16:57] LABS: Potassium 3.9 MMOL/L (3.5-5.1)
[2022-03-31] MEDS: LEVOFLOXACIN INJ 500 MG/100 ML PREMIX IV SCH (17:21)
[2022-03-31] MEDS: MULTIVITAMIN INJ 10 ML in SODIUM CHLORIDE 0.9% 1,000 ML IV SCH (19:01)
[2022-03-31] MEDS: DOXAZOSIN 1 MG TABLET PO SCH (20:50)
[2022-03-31 22:24] LABS: H pylori Specimen source STOOL; Helicobacter pylori Result Not Detected
[2022-04-01] MEDS: ALBUTEROL/IPRATROPIUM 3 ML NEB RESP TX SCH ×4 (01:19→19:44)
[2022-04-01] MEDS: VANCOMYCIN 125 MG CAPSULE PO SCH ×4 (03:05→21:04)
[2022-04-01 05:18] LABS: Basophils % 0.4 % (0.0-0.8); Eosinophils % 0.2 % (0.00-10.9); Hematocrit 28.6 VOL% (42.0-52.0); Hemoglobin 9.6 GM/DL (14.0-18.0); Immature Granulocytes % 5.9 %; Immature Granulocytes Absolute 0.31 #; Lymphocytes # 0.7 10*3/uL (1.4-4.0); Lymphocytes % 13.2 % (21.2-54.2); Mean Corpuscular HGB Conc 33.6 GM/DL (32-36); Mean Corpuscular Volume 108.7 FL (87-102); Mean Platelet Volume 11.4 FL (9.6-12.0); Monocytes # 0.5 10*3/uL (0.11-0.8); Monocytes % 9.2 % (1.7-12.7); NRBC # 0.02 10*3/uL; Neutrophils % 71.1 % (38.7-73.9); Platelet Count 243 T/CUMM (130-400); Red Blood Count 2.63 MC/CUMM (3.8-5.5); Red Cell Distribution Width 16.8 % (9.3-17.3); White Blood Count 5.2 T/CUMM (4-12)
[2022-04-01 05:37] LABS: Bilirubin,Total 0.7 MG/DL (0.20-1.00); Calcium 8.5 MG/DL (8.5-10.1); Osmolality,Calculated 295.3 MOS/KG (273-304); Total Protein 6.2 G/DL (6.4-8.2)
[2022-04-01 05:41] LABS: Calcium 8.3 MG/DL (8.5-10.1); Osmolality,Calculated 295.3 MOS/KG (273-304)
[2022-04-01 06:12] LABS: Lymphocytes 13 % (20-55); Platelet Estimate Adequate; Total Cells Counted 100
[2022-04-01] MEDS: FOLIC ACID INJ 1 MG in SYRINGE 1 EACH IV SCH (10:07)
[2022-04-01] MEDS: NICOTINE 21 MG/24 HR PATCH TRANSDERM SCH (10:30)
[2022-04-01] MEDS: POTASSIUM CHLORIDE 20 MEQ TABLET PO SCH (10:30)
[2022-04-01] MEDS: METOPROLOL TARTRATE 50 MG TABLET PO SCH ×2 (10:31→20:39)
[2022-04-01] MEDS: PANTOPRAZOLE 40 MG TABLET PO SCH (10:31)
[2022-04-01] MEDS: amLODIPine 10 MG TABLET PO SCH (10:31)
[2022-04-01] MEDS: THIAMINE 200 MG/2 ML VIAL IV SCH ×2 (11:06→20:37)
[2022-04-01] MEDS: COLESTIPOL 1 GM TABLET PO SCH ×2 (11:23→21:04)
[2022-04-01] MEDS ORDERED: cloNIDine 0.1 MG TABLET PO ONE (15:25)
[2022-04-01] MEDS ORDERED: cloNIDine 0.1 MG TABLET PO PRN (15:29)
[2022-04-01] MEDS: LEVOFLOXACIN INJ 500 MG/100 ML PREMIX IV SCH (15:45)
[2022-04-01] MEDS: MULTIVITAMIN INJ 10 ML in SODIUM CHLORIDE 0.9% 1,000 ML IV SCH (17:45)
[2022-04-01] MEDS: DOXAZOSIN 1 MG TABLET PO SCH (20:39)
[2022-04-02] MEDS: ALBUTEROL/IPRATROPIUM 3 ML NEB RESP TX SCH ×4 (00:15→19:19)
[2022-04-02] MEDS: VANCOMYCIN 125 MG CAPSULE PO SCH ×4 (03:54→21:25)
[2022-04-02 05:23] LABS: Basophils % 0.3 % (0.0-0.8); Eosinophils % 0.3 % (0.00-10.9); Hematocrit 25.3 VOL% (42.0-52.0); Hemoglobin 8.5 GM/DL (14.0-18.0); Immature Granulocytes % 5.8 %; Immature Granulocytes Absolute 0.36 #; Lymphocytes # 0.9 10*3/uL (1.4-4.0); Lymphocytes % 13.8 % (21.2-54.2); Mean Corpuscular HGB Conc 33.6 GM/DL (32-36); Mean Corpuscular Volume 109.1 FL (87-102); Mean Platelet Volume 11.8 FL (9.6-12.0); Monocytes # 0.6 10*3/uL (0.11-0.8); Monocytes % 8.9 % (1.7-12.7); NRBC # 0.02 10*3/uL; Neutrophils % 70.9 % (38.7-73.9); Platelet Count 291 T/CUMM (130-400); Red Blood Count 2.32 MC/CUMM (3.8-5.5); White Blood Count 6.2 T/CUMM (4-12)
[2022-04-02 05:41] LABS: Calcium 8.3 MG/DL (8.5-10.1); Osmolality,Calculated 297.1 MOS/KG (273-304); Potassium 3.7 MMOL/L (3.5-5.1)
[2022-04-02 06:20] LABS: Hypochromia Slight; Lymphocytes 17 % (20-55); Platelet Estimate Adequate; Total Cells Counted 100
[2022-04-02] MEDS ORDERED: MAGNESIUM SULF RIDER 4 GM/100 ML PREMIX IV ONE (08:14)
[2022-04-02] MEDS: THIAMINE 200 MG/2 ML VIAL IV SCH ×2 (09:15→21:24)
[2022-04-02] MEDS: FOLIC ACID INJ 1 MG in SYRINGE 1 EACH IV SCH (09:16)
[2022-04-02] MEDS: MAGNESIUM SULF RIDER 2 GM/50 ML PREMIX IV PRN (09:22)
[2022-04-02] MEDS: amLODIPine 10 MG TABLET PO SCH (10:01)
[2022-04-02] MEDS: COLESTIPOL 1 GM TABLET PO SCH ×2 (10:01→21:25)
[2022-04-02] MEDS: PANTOPRAZOLE 40 MG TABLET PO SCH (10:03)
[2022-04-02] MEDS: METOPROLOL TARTRATE 50 MG TABLET PO SCH ×2 (10:03→21:24)
[2022-04-02] MEDS: POTASSIUM CHLORIDE 20 MEQ TABLET PO SCH (10:04)
[2022-04-02] MEDS: NICOTINE 21 MG/24 HR PATCH TRANSDERM SCH (10:08)
[2022-04-02] MEDS: LEVOFLOXACIN INJ 500 MG/100 ML PREMIX IV SCH (16:41)
[2022-04-02] MEDS: MULTIVITAMIN INJ 10 ML in SODIUM CHLORIDE 0.9% 1,000 ML IV SCH (18:32)
[2022-04-02] MEDS: DOXAZOSIN 1 MG TABLET PO SCH (21:25)
[2022-04-03] MEDS: ALBUTEROL/IPRATROPIUM 3 ML NEB RESP TX SCH ×4 (01:56→19:30)
[2022-04-03] MEDS: VANCOMYCIN 125 MG CAPSULE PO SCH ×4 (04:51→22:02)
[2022-04-03 06:02] LABS: Basophils % 0.2 % (0.0-0.8); Eosinophils % 0.4 % (0.00-10.9); Hematocrit 24.2 VOL% (42.0-52.0); Hemoglobin 8.1 GM/DL (14.0-18.0); Immature Granulocytes % 5.7 %; Immature Granulocytes Absolute 0.28 #; Lymphocytes # 0.7 10*3/uL (1.4-4.0); Lymphocytes % 14.6 % (21.2-54.2); Mean Corpuscular HGB Conc 33.5 GM/DL (32-36); Mean Corpuscular Volume 107.1 FL (87-102); Mean Platelet Volume 11.9 FL (9.6-12.0); Monocytes # 0.5 10*3/uL (0.11-0.8); Monocytes % 9.7 % (1.7-12.7); Neutrophils % 69.4 % (38.7-73.9); Platelet Count 263 T/CUMM (130-400); Red Blood Count 2.26 MC/CUMM (3.8-5.5); Red Cell Distribution Width 17.1 % (9.3-17.3); White Blood Count 4.9 T/CUMM (4-12)
[2022-04-03 06:19] LABS: Calcium 8.9 MG/DL (8.5-10.1); Osmolality,Calculated 291.4 MOS/KG (273-304); Potassium 3.7 MMOL/L (3.5-5.1)
[2022-04-03 06:23] LABS: Eosinophils 1 % (0-10); Hypochromia 1+; Lymphocytes 10 % (20-55); Nucleated Red Blood Cells 1 /100 WBC (0-5); Platelet Estimate Normal; Total Cells Counted 100
[2022-04-03] MEDS: amLODIPine 10 MG TABLET PO SCH (09:41)
[2022-04-03] MEDS: COLESTIPOL 1 GM TABLET PO SCH ×2 (09:41→22:01)
[2022-04-03] MEDS: PANTOPRAZOLE 40 MG TABLET PO SCH (09:41)
[2022-04-03] MEDS: METOPROLOL TARTRATE 50 MG TABLET PO SCH ×2 (09:41→20:31)
[2022-04-03] MEDS: NICOTINE 21 MG/24 HR PATCH TRANSDERM SCH (09:41)
[2022-04-03] MEDS: POTASSIUM CHLORIDE 20 MEQ TABLET PO SCH (09:41)
[2022-04-03] MEDS: THIAMINE 200 MG/2 ML VIAL IV SCH (09:42)
[2022-04-03] MEDS: FOLIC ACID INJ 1 MG in SYRINGE 1 EACH IV SCH (09:49)
[2022-04-03] MEDS: ERGOCALCIFEROL 50,000 UNIT CAPSULE PO SCH (14:34)
[2022-04-03] MEDS: LEVOFLOXACIN INJ 500 MG/100 ML PREMIX IV SCH (16:38)
[2022-04-03] MEDS: THIAMINE 100 MG TABLET PO SCH (20:31)
[2022-04-03] MEDS: FOLIC ACID 1 MG TABLET PO SCH (20:31)
[2022-04-03] MEDS: DOXAZOSIN 1 MG TABLET PO SCH (20:32)
[2022-04-04] MEDS: ALBUTEROL/IPRATROPIUM 3 ML NEB RESP TX SCH ×4 (00:16→19:09)
[2022-04-04] MEDS: VANCOMYCIN 125 MG CAPSULE PO SCH ×4 (04:23→22:15)
[2022-04-04 06:12] LABS: Basophils % 0.4 % (0.0-0.8); Eosinophils % 0.2 % (0.00-10.9); Hematocrit 25.5 VOL% (42.0-52.0); Hemoglobin 8.4 GM/DL (14.0-18.0); Immature Granulocytes % 5.8 %; Immature Granulocytes Absolute 0.29 #; Lymphocytes # 0.8 10*3/uL (1.4-4.0); Lymphocytes % 15.3 % (21.2-54.2); Mean Corpuscular HGB Conc 32.9 GM/DL (32-36); Mean Platelet Volume 11.8 FL (9.6-12.0); Monocytes # 0.6 10*3/uL (0.11-0.8); Neutrophils % 67.3 % (38.7-73.9); Platelet Count 263 T/CUMM (130-400); Red Blood Count 2.34 MC/CUMM (3.8-5.5); Red Cell Distribution Width 17.3 % (9.3-17.3)
[2022-04-04 06:32] LABS: Osmolality,Calculated 288.6 MOS/KG (273-304); Potassium 4.1 MMOL/L (3.5-5.1)
[2022-04-04 06:34] LABS: Band Neutrophils 1 % (0-10); Eosinophils 2 % (0-10); Lymphocytes 21 % (20-55); Nucleated Red Blood Cells 1 /100 WBC (0-5); Total Cells Counted 100
[2022-04-04 06:35] LABS: Hypochromia 1+; Macrocytosis 1+; Target Cells Slight
[2022-04-04 06:36] LABS: Platelet Estimate Normal
[2022-04-04] MEDS: NICOTINE 21 MG/24 HR PATCH TRANSDERM SCH (10:02)
[2022-04-04] MEDS: amLODIPine 10 MG TABLET PO SCH (10:03)
[2022-04-04] MEDS: POTASSIUM CHLORIDE 20 MEQ TABLET PO SCH (10:03)
[2022-04-04] MEDS: COLESTIPOL 1 GM TABLET PO SCH ×2 (10:03→22:15)
[2022-04-04] MEDS: METOPROLOL TARTRATE 50 MG TABLET PO SCH ×2 (10:03→21:07)
[2022-04-04] MEDS: THIAMINE 100 MG TABLET PO SCH ×2 (10:03→21:07)
[2022-04-04] MEDS: MULTIVITAMIN (BEROCCA) TABLET PO SCH (10:03)
[2022-04-04] MEDS: FOLIC ACID 1 MG TABLET PO SCH ×2 (10:04→21:07)
[2022-04-04] MEDS: LEVOFLOXACIN INJ 500 MG/100 ML PREMIX IV SCH (17:25)
[2022-04-04] MEDS: hydrALAZINE 20 MG/1 ML VIAL IV PRN (17:25)
[2022-04-04] MEDS: DOXAZOSIN 1 MG TABLET PO SCH (21:07)
[2022-04-05] MEDS: ALBUTEROL/IPRATROPIUM 3 ML NEB RESP TX SCH ×4 (00:17→19:26)
[2022-04-05] MEDS: VANCOMYCIN 125 MG CAPSULE PO SCH ×4 (03:40→21:16)
[2022-04-05 05:35] LABS: Basophils % 0.4 % (0.0-0.8); Eosinophils % 0.2 % (0.00-10.9); Hematocrit 23.8 VOL% (42.0-52.0); Hemoglobin 8.2 GM/DL (14.0-18.0); Immature Granulocytes % 4.8 %; Immature Granulocytes Absolute 0.23 #; Lymphocytes # 0.8 10*3/uL (1.4-4.0); Lymphocytes % 16.7 % (21.2-54.2); Mean Corpuscular HGB Conc 34.5 GM/DL (32-36); Mean Corpuscular Volume 108.7 FL (87-102); Mean Platelet Volume 12.6 FL (9.6-12.0); Monocytes # 0.5 10*3/uL (0.11-0.8); Monocytes % 10.8 % (1.7-12.7); Neutrophils % 67.1 % (38.7-73.9); Platelet Count 250 T/CUMM (130-400); Red Blood Count 2.19 MC/CUMM (3.8-5.5); Red Cell Distribution Width 17.4 % (9.3-17.3); White Blood Count 4.8 T/CUMM (4-12)
[2022-04-05 05:49] LABS: Calcium 8.8 MG/DL (8.5-10.1); Osmolality,Calculated 290.4 MOS/KG (273-304); Potassium 4.1 MMOL/L (3.5-5.1)
[2022-04-05] MEDS ORDERED: TUBERCULIN SKIN TEST 0.1 ML SYRINGE INTRADERM ONE (08:13)
[2022-04-05] MEDS: POTASSIUM CHLORIDE 20 MEQ TABLET PO SCH (09:54)
[2022-04-05] MEDS: MULTIVITAMIN (BEROCCA) TABLET PO SCH (09:54)
[2022-04-05] MEDS: COLESTIPOL 1 GM TABLET PO SCH ×2 (09:54→21:17)
[2022-04-05] MEDS: amLODIPine 10 MG TABLET PO SCH (09:54)
[2022-04-05] MEDS: THIAMINE 100 MG TABLET PO SCH ×2 (09:55→21:14)
[2022-04-05] MEDS: FOLIC ACID 1 MG TABLET PO SCH ×2 (09:55→21:14)
[2022-04-05] MEDS: METOPROLOL TARTRATE 50 MG TABLET PO SCH ×2 (09:55→21:14)
[2022-04-05] MEDS: cloNIDine 0.1 MG/24 HR PATCH TRANSDERM SCH (09:59)
[2022-04-05] MEDS: NICOTINE 21 MG/24 HR PATCH TRANSDERM SCH (12:05)
[2022-04-05] MEDS: LEVOFLOXACIN INJ 500 MG/100 ML PREMIX IV SCH (15:28)
[2022-04-05 15:46] LABS: Renin Activity < 0.6 ng/mL/h
[2022-04-05] MEDS: DOXAZOSIN 1 MG TABLET PO SCH (21:16)
[2022-04-06] MEDS: MAGNESIUM SULF RIDER 2 GM/50 ML PREMIX IV PRN ×2 (00:44→02:57)
[2022-04-06] MEDS: ALBUTEROL/IPRATROPIUM 3 ML NEB RESP TX SCH ×4 (02:26→19:20)
[2022-04-06] MEDS: VANCOMYCIN 125 MG CAPSULE PO SCH ×3 (04:12→16:06)
[2022-04-06 04:47] LABS: Basophils % 0.4 % (0.0-0.8); Eosinophils % 0.6 % (0.00-10.9); Hematocrit 22.9 VOL% (42.0-52.0); Hemoglobin 7.7 GM/DL (14.0-18.0); Immature Granulocytes % 4.6 %; Immature Granulocytes Absolute 0.23 #; Lymphocytes # 0.8 10*3/uL (1.4-4.0); Lymphocytes % 16.7 % (21.2-54.2); Mean Corpuscular HGB Conc 33.6 GM/DL (32-36); Mean Corpuscular Volume 108.5 FL (87-102); Mean Platelet Volume 11.9 FL (9.6-12.0); Monocytes # 0.6 10*3/uL (0.11-0.8); Monocytes % 11.9 % (1.7-12.7); Neutrophils % 65.8 % (38.7-73.9); Platelet Count 239 T/CUMM (130-400); Red Blood Count 2.11 MC/CUMM (3.8-5.5); Red Cell Distribution Width 17.7 % (9.3-17.3)
[2022-04-06 05:03] LABS: Calcium 8.5 MG/DL (8.5-10.1); Osmolality,Calculated 290.4 MOS/KG (273-304); Potassium 4.3 MMOL/L (3.5-5.1)
[2022-04-06] MEDS: COLESTIPOL 1 GM TABLET PO SCH ×2 (10:23→22:33)
[2022-04-06] MEDS: MULTIVITAMIN (BEROCCA) TABLET PO SCH (10:23)
[2022-04-06] MEDS: POTASSIUM CHLORIDE 20 MEQ TABLET PO SCH (10:23)
[2022-04-06] MEDS: FOLIC ACID 1 MG TABLET PO SCH ×2 (10:23→22:33)
[2022-04-06] MEDS: amLODIPine 10 MG TABLET PO SCH (10:24)
[2022-04-06] MEDS: METOPROLOL TARTRATE 50 MG TABLET PO SCH ×2 (10:24→22:33)
[2022-04-06] MEDS: THIAMINE 100 MG TABLET PO SCH ×2 (10:24→22:33)
[2022-04-06] MEDS: NICOTINE 21 MG/24 HR PATCH TRANSDERM SCH (10:35)
[2022-04-06] MEDS: LEVOFLOXACIN INJ 500 MG/100 ML PREMIX IV SCH (16:06)
[2022-04-06] MEDS: DOXAZOSIN 1 MG TABLET PO SCH (22:33)
[2022-04-07] MEDS: ALBUTEROL/IPRATROPIUM 3 ML NEB RESP TX SCH ×4 (01:00→19:51)
[2022-04-07 05:40] LABS: Basophils % 0.5 % (0.0-0.8); Eosinophils % 0.5 % (0.00-10.9); Hematocrit 22.8 VOL% (42.0-52.0); Hemoglobin 7.5 GM/DL (14.0-18.0); Immature Granulocytes % 2.3 %; Immature Granulocytes Absolute 0.13 #; Lymphocytes # 0.9 10*3/uL (1.4-4.0); Lymphocytes % 15.7 % (21.2-54.2); Mean Corpuscular HGB Conc 32.9 GM/DL (32-36); Mean Corpuscular Volume 111.2 FL (87-102); Mean Platelet Volume 12.4 FL (9.6-12.0); Monocytes # 0.7 10*3/uL (0.11-0.8); Monocytes % 11.6 % (1.7-12.7); Neutrophils % 69.4 % (38.7-73.9); Platelet Count 230 T/CUMM (130-400); Red Blood Count 2.05 MC/CUMM (3.8-5.5); White Blood Count 5.7 T/CUMM (4-12)
[2022-04-07 05:59] LABS: Calcium 8.9 MG/DL (8.5-10.1); Potassium 4.3 MMOL/L (3.5-5.1)
[2022-04-07 06:15] LABS: Macrocytosis Slight; Platelet Estimate Normal; Target Cells Slight
[2022-04-07] MEDS: MULTIVITAMIN (BEROCCA) TABLET PO SCH (09:36)
[2022-04-07] MEDS: COLESTIPOL 1 GM TABLET PO SCH ×2 (09:36→21:07)
[2022-04-07] MEDS: METOPROLOL TARTRATE 50 MG TABLET PO SCH ×2 (09:36→21:07)
[2022-04-07] MEDS: FOLIC ACID 1 MG TABLET PO SCH ×2 (09:37→21:07)
[2022-04-07] MEDS: amLODIPine 10 MG TABLET PO SCH (09:38)
[2022-04-07] MEDS: THIAMINE 100 MG TABLET PO SCH ×2 (09:38→21:07)
[2022-04-07] MEDS: NICOTINE 21 MG/24 HR PATCH TRANSDERM SCH (09:38)
[2022-04-07] MEDS: POTASSIUM CHLORIDE 20 MEQ TABLET PO SCH (09:39)
[2022-04-07 11:26] LABS: Aldosterone, Plasma < 4.0 ng/dL (<=21)
[2022-04-07] MEDS: DOXAZOSIN 1 MG TABLET PO SCH (21:07)
[2022-04-08] MEDS: ALBUTEROL/IPRATROPIUM 3 ML NEB RESP TX SCH ×4 (00:39→19:50)
[2022-04-08] MEDS: COLESTIPOL 1 GM TABLET PO SCH ×2 (09:05→21:10)
[2022-04-08] MEDS: MULTIVITAMIN (BEROCCA) TABLET PO SCH (09:06)
[2022-04-08] MEDS: METOPROLOL TARTRATE 50 MG TABLET PO SCH ×2 (09:06→20:54)
[2022-04-08] MEDS: FOLIC ACID 1 MG TABLET PO SCH ×2 (09:06→20:54)
[2022-04-08] MEDS: amLODIPine 10 MG TABLET PO SCH (09:06)
[2022-04-08] MEDS: THIAMINE 100 MG TABLET PO SCH ×2 (09:06→20:54)
[2022-04-08] MEDS: NICOTINE 21 MG/24 HR PATCH TRANSDERM SCH (09:40)
[2022-04-08] MEDS: DOXAZOSIN 1 MG TABLET PO SCH (20:54)
[2022-04-09] MEDS: ALBUTEROL/IPRATROPIUM 3 ML NEB RESP TX SCH ×4 (02:20→19:14)
[2022-04-09] MEDS: METOPROLOL TARTRATE 50 MG TABLET PO SCH ×2 (09:28→20:36)
[2022-04-09] MEDS: THIAMINE 100 MG TABLET PO SCH ×2 (09:28→20:36)
[2022-04-09] MEDS: NICOTINE 21 MG/24 HR PATCH TRANSDERM SCH (09:28)
[2022-04-09] MEDS: COLESTIPOL 1 GM TABLET PO SCH ×2 (09:29→21:28)
[2022-04-09] MEDS: MULTIVITAMIN (BEROCCA) TABLET PO SCH (09:29)
[2022-04-09] MEDS: amLODIPine 10 MG TABLET PO SCH (09:29)
[2022-04-09] MEDS: FOLIC ACID 1 MG TABLET PO SCH ×2 (09:29→20:36)
[2022-04-09] MEDS: DOXAZOSIN 1 MG TABLET PO SCH (20:36)
[2022-04-10] MEDS: ALBUTEROL/IPRATROPIUM 3 ML NEB RESP TX SCH ×4 (00:53→19:01)
[2022-04-10 05:00] LABS: Basophils # 0.1 10*3/uL (0.0-0.2); Basophils % 1.1 % (0.0-0.8); Eosinophils # 0.1 10*3/uL (0.0-0.87); Eosinophils % 0.8 % (0.00-10.9); Hematocrit 21.2 VOL% (42.0-52.0); Immature Granulocytes % 1.6 %; Lymphocytes # 1.2 10*3/uL (1.4-4.0); Lymphocytes % 18.5 % (21.2-54.2); Mean Corpuscular Volume 110.4 FL (87-102); Mean Platelet Volume 11.9 FL (9.6-12.0); Monocytes # 0.9 10*3/uL (0.11-0.8); Monocytes % 14.6 % (1.7-12.7); Neutrophils % 63.4 % (38.7-73.9); Platelet Count 225 T/CUMM (130-400); Red Blood Count 1.92 MC/CUMM (3.8-5.5); Red Cell Distribution Width 17.8 % (9.3-17.3); White Blood Count 6.4 T/CUMM (4-12)
[2022-04-10 05:18] LABS: Hypochromia 1+
[2022-04-10 05:19] LABS: Platelet Estimate Normal
[2022-04-10 05:19] LABS: Osmolality,Calculated 284.3 MOS/KG (273-304); Potassium 4.3 MMOL/L (3.5-5.1)
[2022-04-10] MEDS: amLODIPine 10 MG TABLET PO SCH (10:36)
[2022-04-10] MEDS: MULTIVITAMIN (BEROCCA) TABLET PO SCH (10:36)
[2022-04-10] MEDS: FOLIC ACID 1 MG TABLET PO SCH ×2 (10:36→20:30)
[2022-04-10] MEDS: THIAMINE 100 MG TABLET PO SCH ×2 (10:37→20:30)
[2022-04-10] MEDS: NICOTINE 21 MG/24 HR PATCH TRANSDERM SCH (10:37)
[2022-04-10] MEDS: METOPROLOL TARTRATE 50 MG TABLET PO SCH ×2 (10:37→20:30)
[2022-04-10] MEDS: ERGOCALCIFEROL 50,000 UNIT CAPSULE PO SCH (10:40)
[2022-04-10] MEDS: COLESTIPOL 1 GM TABLET PO SCH ×2 (10:40→22:12)
[2022-04-10] MEDS: DOXAZOSIN 1 MG TABLET PO SCH (20:30)
[2022-04-11] MEDS: ALBUTEROL/IPRATROPIUM 3 ML NEB RESP TX SCH ×2 (00:03→07:18)
[2022-04-11 08:22] LABS: Basophils # 0.1 10*3/uL (0.0-0.2); Basophils % 1.1 % (0.0-0.8); Eosinophils % 0.5 % (0.00-10.9); Hematocrit 23.9 VOL% (42.0-52.0); Hemoglobin 7.6 GM/DL (14.0-18.0); Immature Granulocytes % 0.8 %; Immature Granulocytes Absolute 0.06 #; Lymphocytes # 1.5 10*3/uL (1.4-4.0); Lymphocytes % 19.7 % (21.2-54.2); Mean Corpuscular HGB Conc 31.8 GM/DL (32-36); Mean Corpuscular Volume 112.7 FL (87-102); Mean Platelet Volume 11.1 FL (9.6-12.0); Monocytes % 13.2 % (1.7-12.7); Neutrophils % 64.7 % (38.7-73.9); Platelet Count 190 T/CUMM (130-400); Red Blood Count 2.12 MC/CUMM (3.8-5.5); Red Cell Distribution Width 17.9 % (9.3-17.3); White Blood Count 7.5 T/CUMM (4-12)
[2022-04-11 08:41] LABS: Lymphocytes 17 % (20-55); Platelet Estimate Adequate; Total Cells Counted 100
[2022-04-11 08:42] LABS: Hypochromia Slight
[2022-04-11] MEDS: amLODIPine 10 MG TABLET PO SCH (09:12)
[2022-04-11] MEDS: COLESTIPOL 1 GM TABLET PO SCH (09:12)
[2022-04-11] MEDS: METOPROLOL TARTRATE 50 MG TABLET PO SCH (09:12)
[2022-04-11] MEDS: MULTIVITAMIN (BEROCCA) TABLET PO SCH (09:12)
[2022-04-11] MEDS: FOLIC ACID 1 MG TABLET PO SCH (09:13)
[2022-04-11] MEDS: THIAMINE 100 MG TABLET PO SCH (09:16)
[2022-04-11] MEDS: NICOTINE 21 MG/24 HR PATCH TRANSDERM SCH (09:16)
[2022-04-11 11:20] VITALS: BP 148/77
== END 2022-04-11 13:30 | disposition swing bed (61) | DRG 871 ==
LOC: N.ED 15:27 → SUATTDRO 17:29 → N.EDINP 17:29 → N.TELEN 18:04
PROVIDERS: ADMIT Family Medicine; ATTEND Emergency Medicine